=== PATIENT | female | born 1960 | race Caucasian/White ===

== ENCOUNTER 2016-06-19 20:08 | Emergency (ER) | payer MEDICAID ==
[2016-06-19] MEDS ORDERED: DUONEB INH ONE (23:59)
[2016-06-20] MEDS ORDERED: ALBUTEROL HFA INH ONE (00:57)
[2016-06-20] MEDS ORDERED: Furosemide 40 MG TAB PO ONE (01:05)
== END 2016-06-20 01:28 | disposition home or self-care (01) ==
LOC: ER 20:08
DX: R60.0 Localized edema (principal); I87.2 Venous insufficiency (chronic) (peripheral); E03.9 Hypothyroidism, unspecified; J44.9 Chronic obstructive pulmonary disease, unspecified; Z79.899 Other long term (current) drug therapy; F17.210 Nicotine dependence, cigarettes, uncomplicated
CPT/HCPCS: 36415; 71020; 80053; 83880; 85025; 94640